=== PATIENT | male | born 1995 | race Caucasian/White ===

== ENCOUNTER 2016-12-20 13:58 | Emergency (ER) | payer OTHER, BC ==
--- NOTE | 2016-12-20 15:15 | EDM.PDOC ---
ED HPI GENERAL MEDICAL PROBLEM - General Chief Complaint: Abdominal Pain Stated Complaint: POSSIBLE HERNIA Time Seen by Provider: 12/20/16 14:41 - History of Present Illness INITIAL COMMENTS - FREE TEXT/NARRATIVE: HISTORY AND PHYSICAL: History of present illness: The patient is a 20-year-old male with no stated medical problems who presents with a 2 day history of feeling a lump in his left groin area he is concerned that it is a hernia. The patient denies any fever chills abdominal pain dysuria frequency urgency or penile discharge testicular pain or swelling.He Has no flank pain. Patient does admit that he does shave his perineal area. Patient says that he first noticed the lump and there was no discrete pain in the area but over the last 2 days it has gradually increased in discomfort and now seems to be worse when he moves his leg. He has no neurosensory changes in his left leg patient has been eating and drinking normally. He has not taken any over-the -counter meds for the discomfort. Review of systems: As per history of present illness and below otherwise all systems reviewed and negative. Past medical history: As per history of present illness and as reviewed below otherwise noncontributory. Surgical history: As per history of present illness and as reviewed below otherwise noncontributory. Social history: No reported history of drug or alcohol abuse. Family history: As per history of present illness and as reviewed below otherwise noncontributory. Physical exam: Gen.: Well-developed well-nourished man who is nontoxic and ambulatory in the vital signs of the note by me HEENT: Atraumatic, normocephalic, negative for conjunctival pallor or scleral icterus, mucous membranes moist, throat clear, neck supple, nontender, trachea midline. Lungs: Clear to auscultation, breath sounds equal bilaterally, chest nontender. Heart: S1S2, regular rate and rhythm no overt murmurs Abdomen: Soft, nondistended, nontender. Negative for masses or hepatosplenomegaly. Negative for costovertebral tenderness. Pelvis: Stable nontender. Genitourinary: Testicles are descending bilaterally and there is no tenderness masses or soft tissue swelling appreciated at the testicles or the scrotal area. Cremasteric reflexes intact. There are several areas of scab-like lesions seen consistent with his shaving at the base of the scrotum as well as scattered throughout and there is no redness or drainage appreciated. The patient is circumcised. On palpation there is shotty inguinal adenopathy bilaterally and on the right side, the unaffected side, is a small mobile lymph node that is approximately 1 cm in size. It is nontender. On the left inguinal area there is a walnut-sized mobile mass appreciated which is not warm or erythematous but there is some tenderness. There is no fixation of this. On both supine and upright exam there is no overt cranial defect appreciated with Valsalva. Rectal: Deferred. Extremities: Atraumatic, negative for cords or calf pain. Neurovascular unremarkable. On range of motion at the hip flexors there is some mild tenderness reproducible with full flexion Neuro: Awake, alert, oriented. Cranial nerves II through XII unremarkable. Cerebellum unremarkable. Motor and sensory unremarkable throughout. Exam nonfocal. Diagnostics: Ultrasound of inguinal area Therapeutics: Patient deferred pain medication Impression: Left inguinal lymph nodes Definitive disposition and diagnosis as appropriate pending reevaluation and review of above. Left Groin Pain Score (Numeric/FACES): 8 - Related Data Allergies Allergy/AdvReac Type Severity Reaction Status Date / Time No Known Allergies Allergy Verified 12/20/16 14:27 Home Meds: Home Meds . [No Known Home Meds] 10/10/15 [History] Past Medical History - Past Health History Medical/Surgical History: Denies Medical/Surgical History - Infectious Disease History Infectious Disease History: Reports: Chicken Pox Social & Family History - Family History Family Medical History: Noncontributory - Tobacco Use Smoking Status *Q: Current Every Day Smoker Years of Tobacco use: 1 Packs/Tins Daily: 0.9 Second Hand Smoke Exposure: No - Recreational Drug Use Recreational Drug Use: No ED ROS GENERAL - Review of Systems Review Of Systems: ROS reveals no pertinent complaints other than HPI. ED EXAM, GENERAL - Physical Exam Exam: See Below (See dictation) Course - Vital Signs Last Recorded V/S: Last Vital Signs Temp 36.9 C 12/20/16 14:25 Pulse 70 12/20/16 14:25 Resp 18 12/20/16 14:25 BP 110/65 12/20/16 14:25 Pulse Ox 99 12/20/16 14:25 - Orders/Labs/Meds Orders: Active Orders 24 hr Category Date Time Status Extremity Non Vascular Lt [US] Stat Exams 12/20/16 15:10 Taken Departure - Departure Time of Disposition: 16:24 Disposition: Home, Self-Care 01 Condition: Good Clinical Impression: Inguinal lymphadenopathy - Discharge Information Referrals: PCP,None [Primary Care Provider] - Forms: ED Department Discharge Additional Instructions: The following information is given to patients seen in the emergency department who are being discharged to home. This information is to outline your options for follow-up care. We provide all patients seen in our emergency department with a follow-up referral. The need for follow-up, as well as the timing and circumstances, are variable depending upon the specifics of your emergency department visit. If you don't have a primary care physician on staff, we will provide you with a referral. We always advise you to contact your personal physician following an emergency department visit to inform them of the circumstance of the visit and for follow-up with them and/or the need for any referrals to a consulting specialist. The emergency department will also refer you to a specialist when appropriate. This referral assures that you have the opportunity for followup care with a specialist. All of these measure are taken in an effort to provide you with optimal care, which includes your followup. Under all circumstances we always encourage you to contact your private physician who remains a resource for coordinating your care. When calling for followup care, please make the office aware that this follow-up is from your recent emergency room visit. If for any reason you are refused follow-up, please contact the [facility] emergency department at and ask to speak to the emergency department charge nurse. [facility] Primary care- Internal [place] [address] Please take antibiotics until they're finished. Please call and follow-up with primary care in the next few days for reevaluation and further care as needed. Return to ER as needed and as discussed. Please try to refrain from shaving the area as that may be causing some of the swelling of the lymph nodes - My Orders Last 24 Hours: My Active Orders 12/20/16 15:10 Extremity Non Vascular Lt [US] Stat - Assessment/Plan Last 24 Hours: My Active Orders 12/20/16 15:10 Extremity Non Vascular Lt [US] Stat
[2016-12-20 16:51] VITALS: BP 120/54
--- NOTE | 2016-12-21 13:02 | US ---
EXAM DATE: 12/20/16 PATIENT'S AGE: 20 Patient: JOE MIRANDA Facility: [place], [place] Site . Site : 1995 Study: US Extremity Left [id number] 3:53:45 PM Ordering Physician: Jie Jaime Final Report: Indication: Left inguinal the mass. Question hernia, abscess, cyst/mass. Technique: Grayscale and color-flow Doppler ultrasound examination of the left groin. Comparison: None. Findings: Several left inguinal lymph nodes are demonstrated with the largest measuring up to 1 cm in short axis. This corresponds to the palpable abnormality. No hernia or abnormal fluid collection is identified. Impression: Several left inguinal lymph nodes, the largest of which measures up to 1 cm in short axis. Dictated by Adolfo Hu MD @ Dec 20 2016 4:07PM (Electronic Signature) Report Signed by Proxy. BRANDON
== END 2016-12-20 16:49 | disposition home or self-care (01) ==
LOC: MW.ED 13:58
DX: R59.0 Localized enlarged lymph nodes (principal); F17.210 Nicotine dependence, cigarettes, uncomplicated
CPT/HCPCS: 76881-26-LT; 76881-LT; 99282; 99283-25

== ENCOUNTER 2017-04-01 17:12 | Emergency (ER) | payer BC, OTHER ==
--- NOTE | 2017-04-01 17:15 | EDM.PDOC ---
ED HPI GENERAL MEDICAL PROBLEM - General Chief Complaint: ENT Problem Stated Complaint: PAIN/SWOLLEN THROAT/TROUBLE BREATHING Time Seen by Provider: 04/01/17 17:14 Source of Information: Reports: Patient - History of Present Illness INITIAL COMMENTS - FREE TEXT/NARRATIVE: HISTORY AND PHYSICAL: History of present illness: [Patient has sore throat for 2 hours as well as cough, he stated he has difficulty breathing although he speaks freely there is no drooling to [place] or hot potato voice He does have moderate erythema and some lymph node enlargement on the anterior chain he states that he feels as if there are air bubbles in his neck that do not appreciate any air bubbles crepitus subcutaneous emphysema whatsoever he denies any injury that would predispose him to such condition. He denies fever nausea vomiting diarrhea constipation chest pain headache dizziness or palpitation no bowel or urine symptoms ] Review of systems: As per history of present illness and below otherwise all systems reviewed and negative. Past medical history: As per history of present illness and as reviewed below otherwise noncontributory. Surgical history: As per history of present illness and as reviewed below otherwise noncontributory. Social history: No reported history of drug or alcohol abuse. Family history: As per history of present illness and as reviewed below otherwise noncontributory. Physical exam: HEENT: Atraumatic, normocephalic, pupils reactive, negative for conjunctival pallor or scleral icterus, mucous membranes moist, throat clear, neck supple, nontender, trachea midline. Moderate erythema oropharynx tonsils 1+ no exudates neck supple no meningeal sign Lungs: Clear to auscultation, breath sounds equal bilaterally, chest nontender. Heart: S1S2, regular, negative for clicks, rubs, or JVD. Abdomen: Soft, nondistended, nontender. Negative for masses or hepatosplenomegaly. Negative for costovertebral tenderness. Pelvis: Stable nontender. Genitourinary: Deferred. Rectal: Deferred. Extremities: Atraumatic, negative for cords or calf pain. Neurovascular unremarkable. Neuro: Awake, alert, oriented. Cranial nerves II through XII unremarkable. Cerebellum unremarkable. Motor and sensory unremarkable throughout. Exam nonfocal. Diagnostics: [Influenza Strep Chest 2 views ] Therapeutics: [1 g Rocephin IM Solu-Medrol 125 mg IM Augmentin 875 per 125 by mouth twice a day #20 no refill ] Impression: [Pharyngitis] Definitive disposition and diagnosis as appropriate pending reevaluation and review of above. Throat Pain Score (Numeric/FACES): 8 - Related Data Allergies Allergy/AdvReac Type Severity Reaction Status Date / Time No Known Allergies Allergy Verified 04/01/17 17:26 Home Meds: Home Meds . [No Known Home Meds] 10/10/15 [History] Past Medical History - Past Health History Medical/Surgical History: Denies Medical/Surgical History - Infectious Disease History Infectious Disease History: Reports: Chicken Pox Social & Family History - Family History Family Medical History: Noncontributory - Tobacco Use Smoking Status *Q: Current Every Day Smoker Years of Tobacco use: 1 Packs/Tins Daily: 0.9 Second Hand Smoke Exposure: No - Recreational Drug Use Recreational Drug Use: No ED ROS GENERAL - Review of Systems Review Of Systems: ROS reveals no pertinent complaints other than HPI. ED EXAM, GENERAL - Physical Exam Exam: See Below Course - Vital Signs Last Recorded V/S: Last Vital Signs Temp 98.8 F 04/01/17 17:26 Pulse 103 H 04/01/17 17:26 Resp 18 04/01/17 17:26 BP 138/63 04/01/17 17:26 Pulse Ox 98 04/01/17 17:26 - Orders/Labs/Meds Orders: Active Orders 24 hr Category Date Time Status Chest 2V [CR] Stat Exams 04/01/17 17:14 Taken CULTURE STREP A CONFIRMATION [RM] Stat Lab 04/01/17 17:13 Results STREP SCRN A RAPID W CULT CONF [RM] Stat Lab 04/01/17 17:13 Results Departure - Departure Time of Disposition: 18:13 Disposition: Home, Self-Care 01 Condition: Good Clinical Impression: Pharyngitis - Discharge Information Forms: ED Department Discharge Additional Instructions: The following information is given to patients seen in the emergency department who are being discharged to home. This information is to outline your options for follow-up care. We provide all patients seen in our emergency department with a follow-up referral. The need for follow-up, as well as the timing and circumstances, are variable depending upon the specifics of your emergency department visit. If you don't have a primary care physician on staff, we will provide you with a referral. We always advise you to contact your personal physician following an emergency department visit to inform them of the circumstance of the visit and for follow-up with them and/or the need for any referrals to a consulting specialist. The emergency department will also refer you to a specialist when appropriate. This referral assures that you have the opportunity for follow-up care with a specialist. All of these measure are taken in an effort to provide you with optimal care, which includes your follow-up. Under all circumstances we always encourage you to contact your private physician who remains a resource for coordinating your care. When calling for follow-up care, please make the office aware that this follow-up is from your recent emergency room visit. If for any reason you are refused follow-up, please contact the [facility] emergency department at and asked to speak to the emergency department charge nurse. - My Orders Last 24 Hours: My Active Orders 04/01/17 17:13 CULTURE STREP A CONFIRMATION [RM] Stat STREP SCRN A RAPID W CULT CONF [RM] Stat 04/01/17 17:14 Chest 2V [CR] Stat - Assessment/Plan Last 24 Hours: My Active Orders 04/01/17 17:13 CULTURE STREP A CONFIRMATION [RM] Stat STREP SCRN A RAPID W CULT CONF [RM] Stat 04/01/17 17:14 Chest 2V [CR] Stat
[2017-04-01] MEDS ORDERED: methylPREDNISolone Sodium Succinate 125 MG/2 ML SDV IM ONE (18:25)
[2017-04-01] MEDS ORDERED: cefTRIAXone 1,000 MG in Lidocaine 1% 4 ML IM ONE (18:25)
[2017-04-01 18:55] VITALS: BP 128/80
--- NOTE | 2017-04-02 12:43 | CR ---
EXAM DATE: 04/01/17 PATIENT'S AGE: 21 Patient: JOE MIRANDA Facility: [place], [place] Site . Site : 1995 Study: XRay Chest [id number] 5:36:11 PM Ordering Physician: Doctor Lowry Final Report: INDICATION: Cough TECHNIQUE: Chest 2 views. COMPARISON: None. FINDINGS: Cardiovascular and mediastinum: Heart size and vasculature are normal in caliber and appearance. Mediastinum is within normal limits. Lungs and pleural spaces: Lungs are clear. No sign of infiltrate or mass. No sign of pleural effusion. No pneumothorax. Bones and soft tissues: No significant findings. IMPRESSION: Unremarkable chest. Dictated by: Emeka Solis MD @ 04/01/2017 18:29:25 (Electronic Signature) Report Signed by Proxy. [facility] SHORELeonor
== END 2017-04-01 18:52 | disposition home or self-care (01) ==
LOC: MW.ED 17:12
DX: J02.9 Acute pharyngitis, unspecified (principal); F17.210 Nicotine dependence, cigarettes, uncomplicated
CPT/HCPCS: 71046; 87081; 87804; 87880; 96372; 99283; J0696; J2930; J2001

== ENCOUNTER 2017-06-24 09:49 | Emergency (ER) | payer OTHER, BC ==
[2017-06-24] MEDS ORDERED: Bupivacaine 0.5% 10 ML SDV INJECT ONE (10:09)
[2017-06-24] MEDS ORDERED: Lidocaine 1% 20 ML MDV INJECT ONE (10:09)
[2017-06-24] MEDS ORDERED: Diphtheria,Pertussis(Acell),Tetanus Vaccine 0.5 ML Syringe IM ONE (10:12)
--- NOTE | 2017-06-24 10:39 | EDM.PDOC ---
ED HPI GENERAL MEDICAL PROBLEM - General Chief Complaint: Laceration Stated Complaint: CUT HAND Time Seen by Provider: 06/24/17 10:08 Source of Information: Reports: Patient History Limitations: Reports: No Limitations - History of Present Illness INITIAL COMMENTS - FREE TEXT/NARRATIVE: History of present illness: [] Patient cut his right hand at work on metal. He denies any other injuries cannot remember his last tetanus shot denies any numbness or tingling. Review of systems: As per history of present illness and below otherwise all systems reviewed and negative. Past medical history: As per history of present illness and as reviewed below otherwise noncontributory. Surgical history: As per history of present illness and as reviewed below otherwise noncontributory. Social history: No reported history of drug or alcohol abuse. Family history: As per history of present illness and as reviewed below otherwise noncontributory. Physical exam: General: Well developed, well nourished in NAD HEENT: Atraumatic, normocephalic, pupils reactive, negative for conjunctival pallor or scleral icterus, mucous membranes moist, throat clear, neck supple, nontender, trachea midline. Lungs: Clear to auscultation, breath sounds equal bilaterally, chest nontender. Heart: S1S2, regular, negative for clicks, rubs, or JVD. Abdomen: Soft, nondistended, nontender. Negative for masses or hepatosplenomegaly. Negative for costovertebral tenderness. Pelvis: Stable nontender. Genitourinary: Deferred. Rectal: Deferred. Extremities: Right hand with 1 cm linear laceration with minimal bleeding at the base of his small finger volar aspect. Distal pulses palpable, negative for cords or calf pain. Neurovascular unremarkable. Neuro: Awake, alert, oriented. Cranial nerves II through XII unremarkable. Cerebellum unremarkable. Motor and sensory unremarkable throughout. Exam nonfocal. Diagnostics: None Therapeutics: []Tetanus updated, digital block and sutured Impression: []Right hand laceration Plan: []Keep wound dry for 24 hours, Sutures out in 7-10 days, Motrin for pain return to ER if any symptoms worsen or change. Definitive disposition and diagnosis as appropriate pending reevaluation and review of above. - Related Data Allergies Allergy/AdvReac Type Severity Reaction Status Date / Time No Known Allergies Allergy Verified 06/24/17 10:02 Home Meds: Home Meds . [No Known Home Meds] 10/10/15 [History] Past Medical History - Past Health History Medical/Surgical History: Denies Medical/Surgical History - Infectious Disease History Infectious Disease History: Reports: Chicken Pox Social & Family History - Family History Family Medical History: Noncontributory ED ROS GENERAL - Review of Systems Review Of Systems: See Below (See history of present illness) ED EXAM, SKIN/RASH Exam: See Below (See history of present illness) Course - Vital Signs Last Recorded V/S: Last Vital Signs Temp 97.8 F 06/24/17 09:59 Pulse 78 06/24/17 09:59 Resp 18 06/24/17 09:59 BP 128/73 06/24/17 09:59 Pulse Ox 99 06/24/17 09:59 - Orders/Labs/Meds Orders: Active Orders 24 hr Category Date Time Status Vaccines to be Administered [RC] PER UNIT ROUTINE Care 06/24/17 10:12 Active Meds: Medications Discontinued Medications Generic Name Dose Route Start Last Admin Trade Name Sherrie PRN Reason Stop Dose Admin Bupivacaine HCl 10 ml 06/24/17 10:09 Sensorcaine-Mpf 0.5% INJECT 06/24/17 10:10 ONETIME ONE Diphtheria/Tetanus/Acell Pertussis 0.5 ml 06/24/17 10:12 Adacel IM 06/24/17 10:13 .ONCE ONE Lidocaine HCl 20 ml 06/24/17 10:09 Xylocaine 1% INJECT 06/24/17 10:10 ONETIME ONE Departure - Departure Time of Disposition: 10:38 Disposition: Home, Self-Care 01 Condition: Good Clinical Impression: Hand laceration Qualifiers: Encounter type: initial encounter Foreign body presence: without foreign body Laterality: right Qualified Code(s): S61.411A - Laceration without foreign body of right hand, initial encounter - Discharge Information Referrals: PCP,None [Primary Care Provider] - Additional Instructions: The following information is given to patients seen in the emergency department who are being discharged to home. This information is to outline your options for follow-up care. We provide all patients seen in our emergency department with a follow-up referral. The need for follow-up, as well as the timing and circumstances, are variable depending upon the specifics of your emergency department visit. If you don't have a primary care physician on staff, we will provide you with a referral. We always advise you to contact your personal physician following an emergency department visit to inform them of the circumstance of the visit and for follow-up with them and/or the need for any referrals to a consulting specialist. The emergency department will also refer you to a specialist when appropriate. This referral assures that you have the opportunity for follow-up care with a specialist. All of these measure are taken in an effort to provide you with optimal care, which includes your follow-up. Under all circumstances we always encourage you to contact your private physician who remains a resource for coordinating your care. When calling for follow-up care, please make the office aware that this follow-up is from your recent emergency room visit. If for any reason you are refused follow-up, please contact the [facility] Emergency Department at and asked to speak to the emergency department charge nurse. Sutures out 7-10 days, keep wound dry for 24 hours, Tylenol Motrin for pain follow-up with primary care as needed. - My Orders Last 24 Hours: My Active Orders 06/24/17 10:12 Vaccines to be Administered [RC] PER UNIT ROUTINE - Assessment/Plan Last 24 Hours: My Active Orders 06/24/17 10:12 Vaccines to be Administered [RC] PER UNIT ROUTINE
[2017-06-24] MEDS ORDERED: Bacitracin Oint 1 GM U/D Packet TOP ONE (10:42)
[2017-06-24 12:34] VITALS: BP 115/59
== END 2017-06-24 11:20 | disposition home or self-care (01) ==
LOC: MW.ED 09:49
DX: S61.411A Laceration without foreign body of right hand, initial encounter (principal); Z23 Encounter for immunization; W26.8XXA Contact with other sharp object(s), not elsewhere classified, initial encounter
CPT/HCPCS: 12001; 90471; 90715; 99282; 99282-25